=== PATIENT | female | born 1950 | race Caucasian/White ===

== ENCOUNTER 2024-06-09 05:58 | Inpatient (IN) | payer MEDICARE, MEDICAID ==
[~2024-06-09] VITALS: Ht 170.2 cm; Wt 99.9 kg
[2024-06-09] VITALS (8 sets, daily range): PULSE 85–149; RESP 20–32; O2SAT 88–98
[2024-06-09] MEDS ORDERED: 0.9% SODIUM CHLORIDE 10 ML SYRINGE IVP PRN (06:15)
[2024-06-09] MEDS ORDERED: GABA-1181 PO ×2 (06:21)
[2024-06-09] MEDS ORDERED: DOCU-412 PO (06:21)
[2024-06-09] MEDS ORDERED: METO25XL PO (06:21)
[2024-06-09] MEDS ORDERED: FLUT16SP NASAL (06:21)
[2024-06-09] MEDS ORDERED: SENN-395 PO (06:21)
[2024-06-09] MEDS ORDERED: MAGN-169 PO (06:21)
[2024-06-09] MEDS ORDERED: RIVA20TA PO (06:21)
[2024-06-09] MEDS ORDERED: BACL10TA PO (06:21)
[2024-06-09 06:37] LABS: BASOPHILS % (AUTO) 0.4 % (0.0-2.0); EOSINOPHILS % (AUTO) 1.2 % (1.0-6.0); HEMOGLOBIN 18.4 g/dL (12.0-16.0); LYMPHOCYTES # (AUTO) 1.1 K/uL (1.0-4.8); LYMPHOCYTES % (AUTO) 8.2 % (22.0-44.0); MEAN CORPUSCULAR HEMOGLOBIN 27.9 pg (26.0-34.0); MEAN CORPUSCULAR HGB CONC 31.9 G/dL (31.0-37.0); MEAN CORPUSCULAR VOLUME 87 fL (80-100); MONOCYTES # (AUTO) 0.9 K/uL (0.1-1.0); MONOCYTES % (AUTO) 6.5 % (2.0-9.0); NEUTROPHILS # (AUTO) 11.5 K/uL (1.8-7.7); NEUTROPHILS % (AUTO) 83.7 % (40.0-70.0); RED BLOOD CELL COUNT(AUTO) 6.62 MIL/uL (4.00-5.20); RED CELL DISTRIBUTION WIDTH 20.1 % (11.5-14.5); WHITE BLOOD COUNT (AUTO) 13.7 K/uL (4.5-11.0)
[2024-06-09 06:47] LABS: ANION GAP 7 mmol/L (8-16); CALCIUM, TOTAL 9.4 mg/dL (8.8-10.5); CARBON DIOXIDE 28 mmol/L (22-29); CHLORIDE 104 mmol/L (98-107); CREATININE 1.21 mg/dL (0.60-1.30); GLOMERULAR FILTR. RATE CALC 44 mL/min (>60); GLUCOSE,RANDOM 151 mg/dL (70-110); POTASSIUM 3.9 mmol/L (3.5-5.1); SODIUM SERUM 139 mmol/L (136-145); UREA NITROGEN, BLOOD 20 mg/dL (7-18)
[2024-06-09 06:51] LABS: PROTHROMBIN TIME 10.9 SEC (9.4-11.6)
[2024-06-09 06:56] LABS: LIPASE 31 U/L (16-77)
[2024-06-09] MEDS: MethylPREDNISolone SOD SUCC 125 MG/2 ML VIAL IVP ONE (06:57)
[2024-06-09] MEDS: SODIUM CHLORIDE 0.9% 1,500 ML IV ONE (06:57)
[2024-06-09 06:58] LABS: TROPONIN I-HIGH SENSITIVITY 63 ng/L (<51)
[2024-06-09] MEDS: CefTRIAXone 1 GM/DEXTROSE 50 ML IV ONE (06:58)
[2024-06-09] MEDS: IPRATROPIUM BROMIDE 0.5 MG/2.5 ML NEB SOLUTION NEB ONE (07:07)
[2024-06-09] MEDS: ALBUTEROL SULFATE 2.5 MG/0.5 ML 5 ML NEB SOLUTION NEB ONE (07:07)
[2024-06-09 07:27] LABS: B-TYPE NATRIURETIC PEPTIDE 102 pg/mL (0-100)
[2024-06-09 07:29] LABS: PLATELET COUNT (AUTO) 181 K/uL (150-450)
[2024-06-09 07:36] LABS: HEMATOCRIT 57.7 % (36-46)
[2024-06-09] MEDS ORDERED: ALBUTEROL SULFATE 2.5 MG/0.5 ML NEB SOLUTION NEB PRN (08:15)
[2024-06-09] MEDS ORDERED: IPRATROPIUM BROMIDE 0.5 MG/2.5 ML NEB SOLUTION NEB PRN (08:15)
[2024-06-09] MEDS ORDERED: ACETAMINOPHEN 325 MG TABLET PO PRN (08:15)
[2024-06-09] MEDS ORDERED: ONDANSETRON HCL 4 MG/2 ML VIAL IVP PRN (08:15)
[2024-06-09 09:11] LABS: LACTIC ACID 1.4 mmol/L (0.4-2.0)
[2024-06-09] MEDS: DOCUSATE SODIUM 100 MG CAPSULE PO SCH (09:14)
[2024-06-09] MEDS: SODIUM CHLORIDE 0.9% 3,000 ML IV ONE (09:14)
[2024-06-09] MEDS: ASPIRIN 325 MG TABLET PO ONE (09:14)
[2024-06-09 09:26] LABS: COVID AG,FIA SOURCE NASAL SWAB
[2024-06-09 09:33] LABS: APPEARANCE,URINE HAZY (CLEAR); BILIRUBIN,URINE NEGATIVE (NEGATIVE); COLOR,URINE YELLOW (YELLOW); GLUCOSE, URINE (UA) NEGATIVE (NEGATIVE); KETONES,URINE NEGATIVE (NEGATIVE); LEUKOCYTE ESTERASE ,URINE LARGE (NEGATIVE); NITRATE,URINE POSITIVE (NEGATIVE); OCCULT BLOOD,URINE NEGATIVE (NEGATIVE); PROTEIN,URINE 30-70 mg/dL (NEGATIVE); SPECIFIC GRAVITIY, URINE 1.016 (1.003-1.030); UROBILINOGEN,URINE <=1.0 mg/dL (<=1.0)
[2024-06-09 09:54] LABS: SARS-COV2 (COVID) ANTIGEN,FIA Negative (Negative)
[2024-06-09 09:55] LABS: INFLUENZA TYPE A NEGATIVE FOR TYPE A (NEGATIVE); INFLUENZA TYPE B NEGATIVE FOR TYPE B (NEGATIVE)
[2024-06-09 10:16] LABS: BACTERIA,URINE Many /HPF (None Seen); RBC,URINE None Seen /HPF (0-2); WBC,URINE 26-50 /HPF (0-5)
[2024-06-09] MEDS ORDERED: FURO20TA4 PO (13:08)
[2024-06-09] MEDS ORDERED: LISI1TAB53 PO (13:08)
[2024-06-09] MEDS ORDERED: ALBU18HF12 IH (13:08)
[2024-06-09] MEDS ORDERED: GABA-1404 PO (13:08)
[2024-06-09] MEDS ORDERED: SIMV-46 PO (13:08)
[2024-06-09] MEDS: ALBUTEROL SULFATE 2.5 MG/0.5 ML NEB SOLUTION NEB SCH (13:44)
[2024-06-09] MEDS: IPRATROPIUM BROMIDE 0.5 MG/2.5 ML NEB SOLUTION NEB SCH (13:44)
[2024-06-09] MEDS: HEPARIN SODIUM,PORCINE 5,000 UNITS/ML VIAL SQ SCH (15:11)
[2024-06-09] MEDS: AZITHROMYCIN 500 MG/NS 250 ML IV SCH (16:27)
[2024-06-09 16:35] LABS: TROPONIN I-HIGH SENSITIVITY 1186 ng/L (<51)
[2024-06-09] MEDS ORDERED: HEPARIN SODIUM,PORCINE 5,000 UNITS/ML VIAL IVP PRN ×2 (17:00)
[2024-06-09] MEDS: ATORVASTATIN CALCIUM 40 MG TABLET PO ONE (17:06)
[2024-06-09] MEDS: HEPARIN SODIUM,PORCINE 5,000 UNITS/ML VIAL IVP ONE (17:07)
[2024-06-09 17:10] LABS: HEMATOCRIT 47.9 % (36-46); HEMOGLOBIN 15.4 g/dL (12.0-16.0); MEAN CORPUSCULAR HEMOGLOBIN 27.7 pg (26.0-34.0); MEAN CORPUSCULAR HGB CONC 32.1 G/dL (31.0-37.0); MEAN CORPUSCULAR VOLUME 87 fL (80-100); PLATELET COUNT (AUTO) 150 K/uL (150-450); RED BLOOD CELL COUNT(AUTO) 5.54 MIL/uL (4.00-5.20); RED CELL DISTRIBUTION WIDTH 19.7 % (11.5-14.5)
[2024-06-09] MEDS: HEPARIN SODIUM 25000 UNITS/D5W 250 ML IV PRN (17:11)
[2024-06-09 17:24] LABS: PROTHROMBIN TIME 10.9 SEC (9.4-11.6)
[2024-06-09 17:25] LABS: BAND NEUTROPHILS % (MANUAL) 7 % (0-5); LYMPHOCYTES % (MANUAL) 3 % (22-44); MONOCYTES % (MANUAL) 6 % (2-9); SEGMENTED NEUTROPHILS % 84 % (40-70); TOTAL CELLS COUNTED 100
[2024-06-09 17:26] LABS: PLATELET MORPHOLOGY COMMENT LARGE PLTS PRESENT; RBC MORPHOLOGY COMMENT NORMAL RBC MORPH
[2024-06-09] MEDS ORDERED: ETOMIDATE 2 MG/ML 10 ML VIAL ONE (17:58)
[2024-06-09] MEDS ORDERED: ROCURONIUM BROMIDE 10 MG/ML 5 ML VIAL ONE (17:59)
[2024-06-09] MEDS: PROPOFOL 1000 MG/ISO-OSM 100 ML IV PRN (18:50)
[2024-06-09 19:13] LABS: TROPONIN I-HIGH SENSITIVITY 1212 ng/L (<51)
[2024-06-09 19:14] LABS: ABG BASE EXCESS -5.4 mmol/L (-2.0-3.0); ABG CARBOXYHEMOGLOBIN 0.3 % (0.5-1.5); ABG METHEMOGLOBIN 0.4 % (0.0-1.5); ABG OXYGEN CONTENT 24.1 mL/dL (15.0-23.0); ABG OXYHEMOGLOBIN 86.4 % (94.0-98.0); PO2, ARTERIAL BG 65.9 mmHg (83.0-108.0); SOURCE, BLOOD GAS ARTERIAL; TEMPERATURE, FAHRENHEIT, BG 98.6 FAHREN (96.0-98.6)
[2024-06-09] MEDS: FUROSEMIDE 20 MG/2 ML VIAL IVP ONE (19:34)
[2024-06-09] MEDS: NOREPINEPHRINE 8 MG/0.9 % NACL 250 ML IV PRN (19:40)
[2024-06-09] MEDS: *CLINICAL-MEROPENEM DOSING CLINICAL ONE (19:41)
[2024-06-09] MEDS ORDERED: PHENYLEPHRINE 200 MG/D5%-WATER 250 ML IV PRN (19:45)
[2024-06-09] MEDS ORDERED: VASOPRESSIN 40 UNITS in DEXTROSE 5%-WATER 98 ML IV PRN (19:45)
[2024-06-09] MEDS: *CLINICAL-LEVOFLOXACIN IVPB DOSING CLINICAL ONE (20:00)
[2024-06-09 20:04] LABS: BASOPHILS % (AUTO) 0.2 % (0.0-2.0); EOSINOPHILS % (AUTO) 0 % (1.0-6.0); HEMOGLOBIN 17.9 g/dL (12.0-16.0); LYMPHOCYTES # (AUTO) 0.4 K/uL (1.0-4.8); LYMPHOCYTES % (AUTO) 1.5 % (22.0-44.0); MEAN CORPUSCULAR HEMOGLOBIN 27.6 pg (26.0-34.0); MEAN CORPUSCULAR HGB CONC 31.4 G/dL (31.0-37.0); MEAN CORPUSCULAR VOLUME 88 fL (80-100); MONOCYTES # (AUTO) 1.2 K/uL (0.1-1.0); MONOCYTES % (AUTO) 4.3 % (2.0-9.0); NEUTROPHILS # (AUTO) 25.5 K/uL (1.8-7.7); PLATELET COUNT (AUTO) 254 K/uL (150-450); RED BLOOD CELL COUNT(AUTO) 6.49 MIL/uL (4.00-5.20); RED CELL DISTRIBUTION WIDTH 20.6 % (11.5-14.5); WHITE BLOOD COUNT (AUTO) 27.2 K/uL (4.5-11.0)
[2024-06-09] MEDS: ACETAMINOPHEN 1000 MG/ISO-OSM 100 ML IV ONE (20:04)
[2024-06-09] MEDS: PROTAMINE SULFATE 10 MG/ML 5 ML VIAL IVP ONE (20:04)
[2024-06-09 20:10] LABS: HEMATOCRIT 57.2 % (36-46)
[2024-06-09] MEDS: MethylPREDNISolone SOD SUCC 125 MG/2 ML VIAL IVP SCH (20:12)
[2024-06-09 20:15] LABS: CALCIUM, TOTAL 7.7 mg/dL (8.8-10.5); CREATININE 1.14 mg/dL (0.60-1.30); POTASSIUM 4.7 mmol/L (3.5-5.1)
[2024-06-09] MEDS ORDERED: FentaNYL CIT 1000MCG/0.9% NACL 100 ML IV PRN (20:15)
[2024-06-09 20:20] LABS: ABG PH 7.121 (7.350-7.450)
[2024-06-09 20:20] LABS: RBC MORPHOLOGY COMMENT NORMAL RBC MORPH
[2024-06-09 20:21] LABS: ABG BASE EXCESS -7.8 mmol/L (-2.0-3.0); ABG CARBOXYHEMOGLOBIN 0.3 % (0.5-1.5); ABG HCO3 18.4 mmol/L (21.0-28.0); ABG METHEMOGLOBIN 0.5 % (0.0-1.5); ABG OXYGEN CONTENT 24.3 mL/dL (15.0-23.0); ABG OXYGEN SATURATION 92.2 % (94.0-98.0); ABG OXYHEMOGLOBIN 91.5 % (94.0-98.0); ABG PCO2 47 mmHg (32.0-45.0); PO2, ARTERIAL BG 75.7 mmHg (83.0-108.0); SOURCE, BLOOD GAS ARTERIAL; TEMPERATURE, FAHRENHEIT, BG 101.5 FAHREN (96.0-98.6)
[2024-06-09 20:21] LABS: ABG PCO2 75 mmHg (32.0-45.0); ABG TOTAL HEMOGLOBIN 19.9 G/dL (12.0-16.0); O2 DEVICE,BLOOD GAS VENTILATOR (ROOM AIR); SITE, BLOOD GAS RT BRACHIAL; VENT MODE, BG Press. Control Vent (ROOM AIR)
[2024-06-09 20:22] LABS: INSIPIRATORY PRESSURE, BG 30 cm H2O; INSPIRATORY TIME, BG 0.9 SEC; PEEP,BG 8 cm H2O; SPONTANEOUS VT, BG 427 ml; VT, ABG 427 ml
[2024-06-09 20:22] LABS: ABG PH 7.241 (7.350-7.450); ABG TOTAL HEMOGLOBIN 18.9 G/dL (12.0-16.0); SITE, BLOOD GAS RT BRACHIAL
[2024-06-09 20:23] LABS: INSIPIRATORY PRESSURE, BG 30 cm H2O; INSPIRATORY TIME, BG 0.9 SEC; O2 DEVICE,BLOOD GAS VENTILATOR (ROOM AIR); PEEP,BG 10 cm H2O; SPONTANEOUS VT, BG 680 ml; VT, ABG 680 ml
[2024-06-09] MEDS: FentaNYL CIT 1000MCG/0.9% NACL 100 ML IV PRN (20:38)
[2024-06-09] MEDS: VANCOMYCIN HCL 1 GM/D5% WATER 200 ML IV ONE (20:49)
[2024-06-09] MEDS: LEVOFLOXACIN 750 MG/D5% WATER 150 ML IV SCH (20:56)
[2024-06-09] MEDS: PHENYLEPHRINE 200 MG/D5%-WATER 250 ML IV PRN (21:17)
[2024-06-09] MEDS: MEROPENEM 1 GM in SODIUM CHLORIDE 0.9% 50 ML IV SCH (21:41)
[2024-06-09] MEDS: CHLORHEXIDINE GLUCONATE 2% TOWELETTE [2'S/6'S] TP SCH (21:42)
[2024-06-09] MEDS ORDERED: SODIUM CHLORIDE 0.9% 500 ML IV ONE (23:07)
[2024-06-10] VITALS (18 sets, daily range): BP systolic 98–153; BP diastolic 43–75; PULSE 61–83; RESP 22–28; TEMP 97.8–99; O2SAT 93–99
[2024-06-10] MEDS ORDERED: CefTRIAXone 1 GM/DEXTROSE 50 ML IV SCH (06:00)
[2024-06-10] MEDS ORDERED: SODIUM CHLORIDE 0.9% 250 ML IV ONE (06:23)
[2024-06-10 06:31] LABS: BASOPHILS % (AUTO) 0.2 % (0.0-2.0); EOSINOPHILS % (AUTO) 0 % (1.0-6.0); HEMOGLOBIN 18.1 g/dL (12.0-16.0); LYMPHOCYTES # (AUTO) 0.9 K/uL (1.0-4.8); LYMPHOCYTES % (AUTO) 3.2 % (22.0-44.0); MEAN CORPUSCULAR HEMOGLOBIN 27.9 pg (26.0-34.0); MEAN CORPUSCULAR HGB CONC 32.3 G/dL (31.0-37.0); MEAN CORPUSCULAR VOLUME 87 fL (80-100); MONOCYTES # (AUTO) 1.6 K/uL (0.1-1.0); MONOCYTES % (AUTO) 5.9 % (2.0-9.0); NEUTROPHILS # (AUTO) 24.8 K/uL (1.8-7.7); PLATELET COUNT (AUTO) 260 K/uL (150-450); RED BLOOD CELL COUNT(AUTO) 6.47 MIL/uL (4.00-5.20); RED CELL DISTRIBUTION WIDTH 20.5 % (11.5-14.5); WHITE BLOOD COUNT (AUTO) 27.4 K/uL (4.5-11.0)
[2024-06-10 06:34] LABS: CREATININE 1.24 mg/dL (0.60-1.30); MAGNESIUM 1.9 mg/dL (1.80-2.40); NEUTROPHILS % (AUTO) 90.7 % (40.0-70.0); POTASSIUM 4.3 mmol/L (3.5-5.1)
[2024-06-10] MEDS ORDERED: VANCOMYCIN HCL 1 GM/D5% WATER 200 ML IV SCH (08:00)
[2024-06-10] MEDS ORDERED: ASPIRIN 81 MG CHEWABLE TABLET PO SCH (08:00)
[2024-06-10 08:07] LABS: ABG BASE EXCESS -5.9 mmol/L (-2.0-3.0); ABG CARBOXYHEMOGLOBIN 0.2 % (0.5-1.5); ABG HCO3 21.4 mmol/L (21.0-28.0); ABG METHEMOGLOBIN 0.1 % (0.0-1.5); ABG OXYGEN CONTENT 25.9 mL/dL (15.0-23.0); ABG OXYGEN SATURATION 98.9 % (94.0-98.0); ABG OXYHEMOGLOBIN 98.6 % (94.0-98.0); ABG PCO2 28 mmHg (32.0-45.0); ABG PH 7.437 (7.350-7.450); PO2, ARTERIAL BG 249.3 mmHg (83.0-108.0); SOURCE, BLOOD GAS ARTERIAL; TEMPERATURE, FAHRENHEIT, BG 98.6 FAHREN (96.0-98.6)
[2024-06-10 08:08] LABS: ABG A-A DIFF O2 435.9 mmHg (10-20.0); ABG TOTAL HEMOGLOBIN 18.3 G/dL (12.0-16.0); INSIPIRATORY PRESSURE, BG 18 cm H2O; INSPIRATORY TIME, BG 0.9 SEC; O2 DEVICE,BLOOD GAS VENTILATOR (ROOM AIR); PEEP,BG 10 cm H2O; SITE, BLOOD GAS RT BRACHIAL; VENT MODE, BG Press. Control Vent (ROOM AIR); VT, ABG 500 ml
[2024-06-10] MEDS: ATORVASTATIN CALCIUM 40 MG TABLET PO SCH (08:26)
[2024-06-10] MEDS: VANCOMYCIN 1.5 GM/WATER(PEG) 300 ML IV SCH (08:27)
[2024-06-10 09:52] LABS: TROPONIN I-HIGH SENSITIVITY 1382 ng/L (<51)
[2024-06-10] MEDS: PROPOFOL 1000 MG/ISO-OSM 100 ML IV PRN (10:01)
[2024-06-10 12:03] LABS: ABG BASE EXCESS -4.8 mmol/L (-2.0-3.0); ABG CARBOXYHEMOGLOBIN 0.9 % (0.5-1.5); ABG HCO3 20.9 mmol/L (21.0-28.0); ABG METHEMOGLOBIN 0.5 % (0.0-1.5); ABG OXYGEN CONTENT 22.5 mL/dL (15.0-23.0); ABG OXYGEN SATURATION 95.1 % (94.0-98.0); ABG OXYHEMOGLOBIN 93.8 % (94.0-98.0); ABG PCO2 39 mmHg (32.0-45.0); ABG PH 7.349 (7.350-7.450); ABG TOTAL HEMOGLOBIN 17.1 G/dL (12.0-16.0); PO2, ARTERIAL BG 77.4 mmHg (83.0-108.0); SOURCE, BLOOD GAS ARTERIAL; TEMPERATURE, FAHRENHEIT, BG 98.6 FAHREN (96.0-98.6)
[2024-06-10 12:04] LABS: ABG A-A DIFF O2 307.8 mmHg (10-20.0); O2 DEVICE,BLOOD GAS VENTILATOR (ROOM AIR); PEEP,BG 5 cm H2O; SITE, BLOOD GAS RT BRACHIAL; VT, ABG 450 ml
[2024-06-10] MEDS: MethylPREDNISolone SOD SUCC 125 MG/2 ML VIAL IVP SCH (12:33)
[2024-06-10 18:04] LABS: HEMATOCRIT 49.1 % (36-46); HEMOGLOBIN 15.9 g/dL (12.0-16.0); MEAN CORPUSCULAR HEMOGLOBIN 28.1 pg (26.0-34.0); MEAN CORPUSCULAR HGB CONC 32.3 G/dL (31.0-37.0); MEAN CORPUSCULAR VOLUME 87 fL (80-100); PLATELET COUNT (AUTO) 214 K/uL (150-450); RED BLOOD CELL COUNT(AUTO) 5.65 MIL/uL (4.00-5.20); RED CELL DISTRIBUTION WIDTH 19.8 % (11.5-14.5); WHITE BLOOD COUNT (AUTO) 20.1 K/uL (4.5-11.0)
[2024-06-10 18:22] LABS: PROTHROMBIN TIME 10.8 SEC (9.4-11.6)
[2024-06-10 18:31] LABS: BAND NEUTROPHILS % (MANUAL) 8 % (0-5); LYMPHOCYTES % (MANUAL) 5 % (22-44); MONOCYTES % (MANUAL) 3 % (2-9); SEGMENTED NEUTROPHILS % 84 % (40-70); TOTAL CELLS COUNTED 100
[2024-06-10] MEDS: HEPARIN SODIUM 25000 UNITS/D5W 250 ML IV PRN (18:59)
[2024-06-10] MEDS: BUMETANIDE 0.25 MG/ML 4 ML VIAL IVP SCH (20:42)
[2024-06-10] MEDS: BUDESONIDE 0.5 MG/2 ML NEB SOLUTION NEB SCH (21:09)
[2024-06-10 21:30] LABS: HEMATOCRIT 50.1 % (36-46); HEMOGLOBIN 16.1 g/dL (12.0-16.0)
[2024-06-11] VITALS (19 sets, daily range): BP systolic 105–137; BP diastolic 50–57; PULSE 48–93; RESP 22–35; TEMP 96.7–98.5; O2SAT 94–100
[2024-06-11] MEDS: HEPARIN SODIUM,PORCINE 5,000 UNITS/ML VIAL IVP PRN ×2 (00:55→17:09)
[2024-06-11 06:16] LABS: EOSINOPHILS % (AUTO) 0.1 % (1.0-6.0); HEMATOCRIT 49.2 % (36-46); HEMOGLOBIN 15.9 g/dL (12.0-16.0); LYMPHOCYTES % (AUTO) 4.5 % (22.0-44.0); MEAN CORPUSCULAR HEMOGLOBIN 27.7 pg (26.0-34.0); MEAN CORPUSCULAR HGB CONC 32.2 G/dL (31.0-37.0); MEAN CORPUSCULAR VOLUME 86 fL (80-100); MONOCYTES # (AUTO) 1.1 K/uL (0.1-1.0); MONOCYTES % (AUTO) 5.4 % (2.0-9.0); NEUTROPHILS # (AUTO) 19.2 K/uL (1.8-7.7); PLATELET COUNT (AUTO) 205 K/uL (150-450); RED BLOOD CELL COUNT(AUTO) 5.73 MIL/uL (4.00-5.20); RED CELL DISTRIBUTION WIDTH 20.1 % (11.5-14.5); WHITE BLOOD COUNT (AUTO) 21.4 K/uL (4.5-11.0)
[2024-06-11 06:25] LABS: CALCIUM, TOTAL 8.3 mg/dL (8.8-10.5); CREATININE 1.1 mg/dL (0.60-1.30); POTASSIUM 3.7 mmol/L (3.5-5.1)
[2024-06-11 06:57] LABS: TROPONIN I-HIGH SENSITIVITY 343 ng/L (<51)
[2024-06-11 15:13] LABS: HEMATOCRIT 47.1 % (36-46); HEMOGLOBIN 15.4 g/dL (12.0-16.0)
[2024-06-11 21:23] LABS: HEMATOCRIT 44.9 % (36-46); HEMOGLOBIN 14.6 g/dL (12.0-16.0)
[2024-06-11] MEDS: ETHYL ALCOHOL 62% ANTISEPTIC NASAL SANITIZER 0.6 ML AMPUL NASAL SCH (23:03)
[2024-06-12] VITALS (24 sets, daily range): BP systolic 86–148; BP diastolic 36–101; PULSE 53–130; RESP 22–23; TEMP 97.3–98.3; O2SAT 91–100
[2024-06-12 05:20] LABS: HEMATOCRIT 46.4 % (36-46); HEMOGLOBIN 15.4 g/dL (12.0-16.0)
[2024-06-12 05:31] LABS: CALCIUM, TOTAL 8.2 mg/dL (8.8-10.5); CREATININE 1.14 mg/dL (0.60-1.30); POTASSIUM 3.6 mmol/L (3.5-5.1); VANCOMYCIN,RANDOM 17.6 mcg/mL (25.0-50.0)
[2024-06-12] MEDS: HEPARIN SODIUM,PORCINE 5,000 UNITS/ML VIAL SQ SCH (08:00)
[2024-06-12] MEDS: POTASSIUM CHLORIDE 10% 40 MEQ/30 ML LIQUID UDCUP NG ONE (19:19)
[2024-06-13] VITALS (18 sets, daily range): BP systolic 123–140; BP diastolic 61–76; PULSE 47–116; RESP 10–22; TEMP 95.8–99.6; O2SAT 93–97
[2024-06-13 06:01] LABS: EOSINOPHILS % (AUTO) 0 % (1.0-6.0); HEMATOCRIT 46.3 % (36-46); HEMOGLOBIN 15.2 g/dL (12.0-16.0); LYMPHOCYTES # (AUTO) 0.5 K/uL (1.0-4.8); LYMPHOCYTES % (AUTO) 4.4 % (22.0-44.0); MEAN CORPUSCULAR HEMOGLOBIN 28.1 pg (26.0-34.0); MEAN CORPUSCULAR HGB CONC 32.9 G/dL (31.0-37.0); MEAN CORPUSCULAR VOLUME 85 fL (80-100); MONOCYTES # (AUTO) 0.5 K/uL (0.1-1.0); MONOCYTES % (AUTO) 4.3 % (2.0-9.0); NEUTROPHILS # (AUTO) 10.8 K/uL (1.8-7.7); PLATELET COUNT (AUTO) 164 K/uL (150-450); RED BLOOD CELL COUNT(AUTO) 5.42 MIL/uL (4.00-5.20); RED CELL DISTRIBUTION WIDTH 20.1 % (11.5-14.5); WHITE BLOOD COUNT (AUTO) 11.8 K/uL (4.5-11.0)
[2024-06-13 06:03] LABS: CALCIUM, TOTAL 8.4 mg/dL (8.8-10.5); CREATININE 1.07 mg/dL (0.60-1.30); POTASSIUM 3.4 mmol/L (3.5-5.1)
[2024-06-13 06:14] LABS: NEUTROPHILS % (AUTO) 91.3 % (40.0-70.0)
[2024-06-13] MEDS ORDERED: POTASSIUM CHL 10 MEQ/WATER 50 ML IV PRN ×2 (07:45)
[2024-06-13] MEDS: DEXMEDETOMIDINE 400 MCG/NS 100 ML IV PRN (07:47)
[2024-06-13] MEDS: POTASSIUM CHLORIDE 10% 40 MEQ/30 ML LIQUID UDCUP GT PRN (08:12)
[2024-06-13 11:12] LABS: ABG BASE EXCESS 1.1 mmol/L (-2.0-3.0); ABG CARBOXYHEMOGLOBIN 0.8 % (0.5-1.5); ABG HCO3 25.4 mmol/L (21.0-28.0); ABG METHEMOGLOBIN 0.3 % (0.0-1.5); ABG OXYGEN CONTENT 22.1 mL/dL (15.0-23.0); ABG OXYGEN SATURATION 96.1 % (94.0-98.0); ABG PCO2 39 mmHg (32.0-45.0); ABG PH 7.428 (7.350-7.450); ABG TOTAL HEMOGLOBIN 16.5 G/dL (12.0-16.0); SOURCE, BLOOD GAS ARTERIAL; TEMPERATURE, FAHRENHEIT, BG 97.3 FAHREN (96.0-98.6)
[2024-06-13 11:13] LABS: O2 DEVICE,BLOOD GAS VENTILATOR (ROOM AIR); PEEP,BG 5 cm H2O; PRESSURE SUPPORT, BG 5 cm H2O; SITE, BLOOD GAS RT BRACHIAL; SPONTANEOUS VT, BG 779 ml; VENT MODE, BG Press. Support Vent. (ROOM AIR)
[2024-06-13 13:10] LABS: CALCIUM, TOTAL 8.7 mg/dL (8.8-10.5); CREATININE 1.09 mg/dL (0.60-1.30); POTASSIUM 3.9 mmol/L (3.5-5.1)
[2024-06-14] VITALS (17 sets, daily range): BP systolic 133–188; BP diastolic 76–140; PULSE 91–120; RESP 12–20; TEMP 99–100.1; O2SAT 92–96
[2024-06-14 06:35] LABS: CREATININE 1.3 mg/dL (0.60-1.30); POTASSIUM 3.8 mmol/L (3.5-5.1)
[2024-06-14 06:39] LABS: BASOPHILS % (AUTO) 0.1 % (0.0-2.0); EOSINOPHILS % (AUTO) 0 % (1.0-6.0); HEMATOCRIT 50.3 % (36-46); HEMOGLOBIN 16.6 g/dL (12.0-16.0); LYMPHOCYTES # (AUTO) 0.7 K/uL (1.0-4.8); LYMPHOCYTES % (AUTO) 4.4 % (22.0-44.0); MEAN CORPUSCULAR HEMOGLOBIN 28.6 pg (26.0-34.0); MEAN CORPUSCULAR HGB CONC 33.1 G/dL (31.0-37.0); MEAN CORPUSCULAR VOLUME 87 fL (80-100); MONOCYTES # (AUTO) 0.9 K/uL (0.1-1.0); MONOCYTES % (AUTO) 5.6 % (2.0-9.0); NEUTROPHILS # (AUTO) 14.5 K/uL (1.8-7.7); PLATELET COUNT (AUTO) 123 K/uL (150-450); RED BLOOD CELL COUNT(AUTO) 5.82 MIL/uL (4.00-5.20); RED CELL DISTRIBUTION WIDTH 19.4 % (11.5-14.5); WHITE BLOOD COUNT (AUTO) 16.2 K/uL (4.5-11.0)
[2024-06-14 07:09] LABS: NEUTROPHILS % (AUTO) 89.9 % (40.0-70.0)
[2024-06-14] MEDS: FLUCONAZOLE 200 MG/NACL ISOOSM 100 ML IV SCH (20:51)
[2024-06-14] MEDS: HydrALAZINE HCL 20 MG/ML VIAL IVP PRN (21:06)
[2024-06-15] VITALS (19 sets, daily range): BP systolic 128–154; BP diastolic 49–80; PULSE 80–104; RESP 16–28; TEMP 99.1–100; O2SAT 93–99
[2024-06-15 06:25] LABS: BASOPHILS % (AUTO) 0.5 % (0.0-2.0); EOSINOPHILS % (AUTO) 0 % (1.0-6.0); HEMATOCRIT 45.6 % (36-46); HEMOGLOBIN 15.2 g/dL (12.0-16.0); LYMPHOCYTES # (AUTO) 0.8 K/uL (1.0-4.8); LYMPHOCYTES % (AUTO) 5.4 % (22.0-44.0); MEAN CORPUSCULAR HEMOGLOBIN 28.6 pg (26.0-34.0); MEAN CORPUSCULAR HGB CONC 33.4 G/dL (31.0-37.0); MEAN CORPUSCULAR VOLUME 86 fL (80-100); MONOCYTES # (AUTO) 0.9 K/uL (0.1-1.0); MONOCYTES % (AUTO) 5.6 % (2.0-9.0); NEUTROPHILS # (AUTO) 13.6 K/uL (1.8-7.7); PLATELET COUNT (AUTO) 94 K/uL (150-450); RED BLOOD CELL COUNT(AUTO) 5.32 MIL/uL (4.00-5.20); RED CELL DISTRIBUTION WIDTH 18.5 % (11.5-14.5); WHITE BLOOD COUNT (AUTO) 15.4 K/uL (4.5-11.0)
[2024-06-15 06:31] LABS: NEUTROPHILS % (AUTO) 88.5 % (40.0-70.0)
[2024-06-15 06:39] LABS: CALCIUM, TOTAL 8.9 mg/dL (8.8-10.5); POTASSIUM 3.7 mmol/L (3.5-5.1); VANCOMYCIN,RANDOM 15.7 mcg/mL (25.0-50.0)
[2024-06-15 07:56] LABS: RBC MORPHOLOGY COMMENT NORMAL RBC MORPH
[2024-06-15] MEDS: BUMETANIDE 0.25 MG/ML 4 ML VIAL IVP SCH (09:02)
[2024-06-15] MEDS: POTASSIUM CHL 10 MEQ/WATER 50 ML IV PRN (09:03)
[2024-06-15] MEDS ORDERED: SODIUM CHLORIDE 0.9% 250 ML IV ONE (09:04)
[2024-06-15] MEDS: METOPROLOL TARTRATE 25 MG TABLET PO SCH (10:01)
[2024-06-15] MEDS: ASPIRIN 81 MG CHEWABLE TABLET PO SCH (10:01)
[2024-06-15] MEDS: MethylPREDNISolone SOD SUCC 125 MG/2 ML VIAL IVP SCH (12:05)
[2024-06-16] VITALS (12 sets, daily range): BP systolic 105–157; BP diastolic 50–73; PULSE 77–122; RESP 18–23; TEMP 98.6–99.9; O2SAT 94–99
[2024-06-16] MEDS ORDERED: SODIUM CHLORIDE 0.9% 0 ML IV ONE (00:15)
[2024-06-16] MEDS ORDERED: SODIUM CHLORIDE 0.9% 250 ML IV ONE (05:10)
[2024-06-16 05:35] LABS: BASOPHILS % (AUTO) 0.1 % (0.0-2.0); EOSINOPHILS % (AUTO) 0 % (1.0-6.0); HEMATOCRIT 42.6 % (36-46); HEMOGLOBIN 13.7 g/dL (12.0-16.0); LYMPHOCYTES # (AUTO) 0.6 K/uL (1.0-4.8); LYMPHOCYTES % (AUTO) 3.3 % (22.0-44.0); MEAN CORPUSCULAR HEMOGLOBIN 28.2 pg (26.0-34.0); MEAN CORPUSCULAR HGB CONC 32.2 G/dL (31.0-37.0); MEAN CORPUSCULAR VOLUME 88 fL (80-100); MONOCYTES # (AUTO) 0.9 K/uL (0.1-1.0); NEUTROPHILS # (AUTO) 16.5 K/uL (1.8-7.7); PLATELET COUNT (AUTO) 99 K/uL (150-450); RED BLOOD CELL COUNT(AUTO) 4.87 MIL/uL (4.00-5.20); RED CELL DISTRIBUTION WIDTH 18.7 % (11.5-14.5)
[2024-06-16 05:40] LABS: NEUTROPHILS % (AUTO) 91.6 % (40.0-70.0)
[2024-06-16 05:46] LABS: ANION GAP 4 mmol/L (8-16); CALCIUM, TOTAL 8.6 mg/dL (8.8-10.5); CARBON DIOXIDE 36 mmol/L (22-29); CHLORIDE 107 mmol/L (98-107); CREATININE 0.79 mg/dL (0.60-1.30); GLOMERULAR FILTR. RATE CALC > 60 mL/min (>60); GLUCOSE,RANDOM 117 mg/dL (70-110); POTASSIUM 3.3 mmol/L (3.5-5.1); SODIUM SERUM 147 mmol/L (136-145); UREA NITROGEN, BLOOD 47 mg/dL (7-18)
[2024-06-16] MEDS: DEXTROSE 5%-WATER 1,000 ML IV SCH (08:47)
[2024-06-16] MEDS: VANCOMYCIN 1GM/WATER(PEG/NADA) 200 ML IV SCH (10:04)
[2024-06-16] MEDS: POTASSIUM CHLORIDE 10% 40 MEQ/30 ML LIQUID UDCUP PO PRN (11:43)
[2024-06-16] MEDS ORDERED: SODIUM CHLORIDE 0.9% 500 ML IV ONE (13:54)
[2024-06-16] MEDS: VANCOMYCIN HCL 1 GM/D5% WATER 200 ML IV SCH (21:09)
[2024-06-16] MEDS ORDERED: SODIUM CHLORIDE 0.9% 1,000 ML ONE (23:12)
[2024-06-17] VITALS (20 sets, daily range): BP systolic 98–141; BP diastolic 49–67; PULSE 82–105; RESP 18–20; TEMP 97.7–98.9; O2SAT 94–99
[2024-06-17] MEDS ORDERED: DEXTROSE 5%-WATER 1,000 ML IV ONE (01:38)
[2024-06-17 08:54] LABS: CALCIUM, TOTAL 8.8 mg/dL (8.8-10.5); CREATININE 1.01 mg/dL (0.60-1.30); POTASSIUM 4.2 mmol/L (3.5-5.1)
[2024-06-17] MEDS: PredniSONE 10 MG TABLET PO SCH (09:30)
[2024-06-17] MEDS ORDERED: DEXTROSE 5%-WATER 1,000 ML IV SCH (12:15)
[2024-06-18] VITALS (12 sets, daily range): BP systolic 113–155; BP diastolic 54–90; PULSE 51–107; RESP 18–20; TEMP 97–98.3; O2SAT 93–100
[2024-06-18 06:46] LABS: HEMATOCRIT 33.9 % (36-46); HEMOGLOBIN 11.1 g/dL (12.0-16.0); MEAN CORPUSCULAR HEMOGLOBIN 28.9 pg (26.0-34.0); MEAN CORPUSCULAR HGB CONC 32.7 G/dL (31.0-37.0); MEAN CORPUSCULAR VOLUME 88 fL (80-100); PLATELET COUNT (AUTO) 182 K/uL (150-450); RED BLOOD CELL COUNT(AUTO) 3.84 MIL/uL (4.00-5.20); RED CELL DISTRIBUTION WIDTH 18.7 % (11.5-14.5)
[2024-06-18 07:10] LABS: CALCIUM, TOTAL 8.9 mg/dL (8.8-10.5); CREATININE 1.12 mg/dL (0.60-1.30); VANCOMYCIN,RANDOM 32.1 mcg/mL (25.0-50.0)
[2024-06-18 08:09] LABS: WHITE BLOOD COUNT (AUTO) 33.7 K/uL (4.5-11.0)
[2024-06-18] MEDS ORDERED: FUROSEMIDE 20 MG TABLET PO SCH (09:00)
[2024-06-18 10:15] LABS: BAND NEUTROPHILS % (MANUAL) 0 % (0-5)
[2024-06-18] MEDS: DEXTROSE 5%-WATER 1,000 ML IV SCH (10:15)
[2024-06-18 10:17] LABS: LYMPHOCYTES % (MANUAL) 9 % (22-44); MONOCYTES % (MANUAL) 9 % (2-9); RBC MORPHOLOGY COMMENT NORMAL RBC MORPH; SEGMENTED NEUTROPHILS % 82 % (40-70); TOTAL CELLS COUNTED 100
[2024-06-18] MEDS: PANTOPRAZOLE SODIUM 80 MG in SODIUM CHLORIDE 0.9% 100 ML IV SCH (12:44)
[2024-06-19] VITALS (10 sets, daily range): BP systolic 101–125; BP diastolic 54–72; PULSE 76–137; RESP 18–19; TEMP 97.6–98.2; O2SAT 95–100
[2024-06-19 07:10] LABS: HEMATOCRIT 32.5 % (36-46); HEMOGLOBIN 10.6 g/dL (12.0-16.0); MEAN CORPUSCULAR HEMOGLOBIN 29.1 pg (26.0-34.0); MEAN CORPUSCULAR HGB CONC 32.5 G/dL (31.0-37.0); MEAN CORPUSCULAR VOLUME 89 fL (80-100); PLATELET COUNT (AUTO) 156 K/uL (150-450); RED BLOOD CELL COUNT(AUTO) 3.64 MIL/uL (4.00-5.20); RED CELL DISTRIBUTION WIDTH 18.4 % (11.5-14.5); WHITE BLOOD COUNT (AUTO) 24.6 K/uL (4.5-11.0)
[2024-06-19 07:12] LABS: CALCIUM, TOTAL 8.8 mg/dL (8.8-10.5); CREATININE 1.2 mg/dL (0.60-1.30); POTASSIUM 3.3 mmol/L (3.5-5.1)
[2024-06-19] MEDS: VANCOMYCIN 1.25 GM/WATER(PEG) 250 ML IV SCH (08:00)
[2024-06-19 08:28] LABS: BAND NEUTROPHILS % (MANUAL) 2 % (0-5); EOSINOPHILS % (MANUAL) 1 % (1-6); LYMPHOCYTES % (MANUAL) 7 % (22-44); MONOCYTES % (MANUAL) 9 % (2-9); RBC MORPHOLOGY COMMENT NORMAL RBC MORPH; SEGMENTED NEUTROPHILS % 81 % (40-70); TOTAL CELLS COUNTED 100
[2024-06-19] MEDS: LISINOPRIL 10 MG TABLET PO SCH (09:49)
[2024-06-19] MEDS ORDERED: SODIUM CHLORIDE 0.9% 1,000 ML ONE (10:28)
[2024-06-19] MEDS ORDERED: SODIUM CHLORIDE 0.9% 500 ML IV ONE (10:37)
[2024-06-19] MEDS: DEXTROSE 5%-WATER 500 ML IV SCH (15:49)
[2024-06-20] VITALS (8 sets, daily range): BP systolic 101–113; BP diastolic 50–79; PULSE 79–104; RESP 18–22; TEMP 97.6–98; O2SAT 95–100
[2024-06-20] MEDS: PredniSONE 10 MG TABLET PO SCH (09:01)
[2024-06-20] MEDS: METOPROLOL SUCCINATE 25 MG ER TABLET PO SCH (09:04)
[2024-06-20 12:10] LABS: HEMATOCRIT 32.3 % (36-46); HEMOGLOBIN 10.2 g/dL (12.0-16.0); MEAN CORPUSCULAR HEMOGLOBIN 28.8 pg (26.0-34.0); MEAN CORPUSCULAR HGB CONC 31.8 G/dL (31.0-37.0); MEAN CORPUSCULAR VOLUME 91 fL (80-100); PLATELET COUNT (AUTO) 126 K/uL (150-450); RED BLOOD CELL COUNT(AUTO) 3.56 MIL/uL (4.00-5.20); RED CELL DISTRIBUTION WIDTH 18.2 % (11.5-14.5); WHITE BLOOD COUNT (AUTO) 24.7 K/uL (4.5-11.0)
[2024-06-20 12:18] LABS: CALCIUM, TOTAL 8.2 mg/dL (8.8-10.5); CREATININE 1.12 mg/dL (0.60-1.30); POTASSIUM 3.3 mmol/L (3.5-5.1)
[2024-06-20 12:23] LABS: ALBUMIN 2.3 g/dL (3.4-5.0); BILIRUBIN,TOTAL 1.1 mg/dL (0.1-1.0); TOTAL PROTEIN, SERUM 5.1 g/dL (6.4-8.2)
[2024-06-20 12:38] LABS: BAND NEUTROPHILS % (MANUAL) 6 % (0-5); LYMPHOCYTES % (MANUAL) 6 % (22-44); METAMYELOCYTES % 2 % (0-0); MONOCYTES % (MANUAL) 6 % (2-9); RBC MORPHOLOGY COMMENT ABNORMAL RBC MORPH; SEGMENTED NEUTROPHILS % 80 % (40-70); TOTAL CELLS COUNTED 100
[2024-06-20 18:30] LABS: GLUCOMETER DEV NAME(LOC) 5N.1D; GLUCOSE,POINT OF CARE 166 MG/DL (70-110)
== END 2024-06-20 20:05 | disposition short-term general hospital (02) | DRG 871 ==
LOC: EMS 06:04 → EDH 08:54 → UNDOADMIN 08:54 → ICU 06-10 01:28 → 5S 06-16 12:15
PROVIDERS: ADMIT Internal Medicine; ATTEND Internal Medicine
PROC: 5A1945Z Respiratory Ventilation, 24-96 Consecutive Hours (ICD-10-PCS; principal; 2024-06-09)
PROC: 0BH17EZ Insertion of Endotracheal Airway into Trachea, Via Natural or Artificial Opening (ICD-10-PCS; 2024-06-09)
PROC: 5A09357 Assistance with Respiratory Ventilation, Less than 24 Consecutive Hours, Continuous Positive Airway Pressure (ICD-10-PCS; 2024-06-09)
PROC: 5A09357 Assistance with Respiratory Ventilation, Less than 24 Consecutive Hours, Continuous Positive Airway Pressure (ICD-10-PCS; 2024-06-15)
PROC: 5A09357 Assistance with Respiratory Ventilation, Less than 24 Consecutive Hours, Continuous Positive Airway Pressure (ICD-10-PCS; 2024-06-16)
PROC: 30233R1 Transfusion of Nonautologous Platelets into Peripheral Vein, Percutaneous Approach (ICD-10-PCS; 2024-06-17)
PROC: 5A09357 Assistance with Respiratory Ventilation, Less than 24 Consecutive Hours, Continuous Positive Airway Pressure (ICD-10-PCS; 2024-06-18)
DX: A41.9 Sepsis, unspecified organism (principal); I21.4 Non-ST elevation (NSTEMI) myocardial infarction; J96.01 Acute respiratory failure with hypoxia; I50.43 Acute on chronic combined systolic (congestive) and diastolic (congestive) heart failure; J69.0 Pneumonitis due to inhalation of food and vomit; J96.02 Acute respiratory failure with hypercapnia; R65.21 Severe sepsis with septic shock; I69.354 Hemiplegia and hemiparesis following cerebral infarction affecting left non-dominant side; I13.0 Hypertensive heart and chronic kidney disease with heart failure and stage 1 through stage 4 chronic kidney disease, or unspecified chronic kidney disease; N39.0 Urinary tract infection, site not specified; J44.1 Chronic obstructive pulmonary disease with (acute) exacerbation; E87.0 Hyperosmolality and hypernatremia; J98.11 Atelectasis; K92.1 Melena; E04.2 Nontoxic multinodular goiter; Z20.822 Contact with and (suspected) exposure to COVID-19; N18.9 Chronic kidney disease, unspecified; E66.01 Morbid (severe) obesity due to excess calories; B96.20 Unspecified Escherichia coli [E. coli] as the cause of diseases classified elsewhere; E87.6 Hypokalemia; D69.6 Thrombocytopenia, unspecified; I25.10 Atherosclerotic heart disease of native coronary artery without angina pectoris; Z68.34 Body mass index [BMI] 34.0-34.9, adult; Z79.01 Long term (current) use of anticoagulants; Z87.891 Personal history of nicotine dependence; Z88.0 Allergy status to penicillin; Z88.5 Allergy status to narcotic agent
CPT/HCPCS: 31500; 36600; 51702; 71045; 71250; 76604; 80048; 80053; 80202; 81001; 82805; 82962; 83036; 83605; 83690; 83735; 83880; 84132; 84145; 84484; 85014; 85018; 85025; 85610; 85730; 86850; 86900; 86901; 87040; 87077; 87081; 87086; 87186; 87804; 92526; 92610; 93005; 93306; 93970; 94002; 94003; 94640; 94644; 94660; 97110; 97163; 97167; 97530; 97535; 99291; J0360; J0456; J0696; J1450; J1644; J1956; J2185; J2370; J2470; J2704; J2720; J2919; J3010; J3370; J3480; J3490; J7030; J7040; J7050; J7060; P9035; 36415-L1; 36415-TC; J7512; J7613; Z7610